=== PATIENT | male | born 1995 | race African-American/Black ===

== ENCOUNTER 2017-09-04 20:35 | Emergency (ER) | payer SELFPAY ==
[~2017-09-04] VITALS: Ht 177.8 cm; Wt 64.5 kg
[2017-09-04 20:44] VITALS: TEMP 98
[2017-09-04 22:40] VITALS: BP 131/80; PULSE 64
== END 2017-09-04 22:40 | disposition home or self-care (01) ==
LOC: COL.ER 20:35
DX: S39.012A Strain of muscle, fascia and tendon of lower back, initial encounter (principal); F12.90 Cannabis use, unspecified, uncomplicated; F17.210 Nicotine dependence, cigarettes, uncomplicated; X50.0XXA Overexertion from strenuous movement or load, initial encounter